=== PATIENT | male | born 1950 | race African-American/Black ===

== ENCOUNTER 2016-06-08 11:53 | Emergency (ER) | payer MEDICARE, MEDICAID ==
[~2016-06-08] VITALS: Ht 200.7 cm; Wt 113.4 kg
[2016-06-08] MEDS ORDERED: Methocarbamol 750mg tab ORAL ONE (12:30)
[2016-06-08] MEDS ORDERED: Ketorolac 30mg Inj IM ONE (12:30)
--- NOTE | 2016-06-08 12:53 | Emergency Room Report ---
History of Present Illness General Chief Complaint: Back Pain-No Injury Source: Patient Present Illness HPI The patient is a 66-year-old with a history of chronic back pain presenting for left lower back pain which began 3 days prior. Pain is described as a 10 out of 10 dull ache and radiates down the back of the leg pain is worse with walking. He denies prior injury to the back. He states he has not taken any medications. He denies any other symptoms such as N, V, F, chills rash, abd pain, dysuria, hematuria, diarrhea Allergies: Coded Allergies: No Known Allergies (Unverified , 06/08/16) Patient History Past Medical History: see triage record Pertinent Family History: none Reviewed Nursing Documentation: PMH: Agreed, PSxH: Agreed Nursing Documentation-PMH Past Medical History: No Stated History Review of Systems All Other Systems: negative except mentioned in HPI Physical Exam Vital Signs Date Time Temp Pulse Resp B/P Pulse Ox O2 Delivery O2 Flow Rate FiO2 06/08/16 12:01 97.9 80 18 112/73 98 Sp02 EP Interpretation: reviewed, normal General Appearance: no apparent distress, alert, GCS 15, non-toxic Head: normocephalic, atraumatic Eyes: bilateral eye PERRL, bilateral eye normal inspection Musculoskeletal: back normal, gait/station normal, normal range of motion, tender - TTP over the L lower paraspinous muscles Neurologic: alert, oriented x3, responsive, motor strength/tone normal, sensory intact, speech normal Psychiatric: judgement/insight normal, memory normal, mood/affect normal, no suicidal/homicidal ideation Skin: normal color, no rash, warm/dry, well hydrated Lymphatic: no adenopathy Medical Decision Making PA Attestation Dr. diehl is my supervising physician. Patient management was discussed with my supervising physician Diagnostic Impression: Primary Impression: Back pain Qualified Codes: M54.5 - Low back pain ER Course The patient is a 66-year-old with a history of chronic back pain presenting for left lower back pain Ddx considered include but not limited to lumbar strain, degenerative disease, chronic pain, narcotic dependency. PE: vitals WNL. NAD Back: No obvious deformity. No midline tenderness. + L lower paraspinal muscle tenderness. Full active range of motion. No CVA tenderness. No lesions , abrasions or ecchymosis seen. Pt is given toradol and robaxin for pain with good relief. The patient states that he has not taken any pain medication, yet [facility] report shows he was prescribed 30 [place] on05/24/2016. Pt was informed of this and is given a prescription for robaxin and motrin. ER precautions given. Last Vital Signs Date Time Temp Pulse Resp B/P Pulse Ox O2 Delivery O2 Flow Rate FiO2 06/08/16 12:01 97.9 80 18 112/73 98 Status: improved Disposition: HOME, SELF-CARE Condition: Improved Scripts Methocarbamol* (ROBAXIN-750*) 750 Mg Tablet 750 MG PO TID, #21 TAB 0 Refills Prov: JIN NOYOLA.Jamel 06/08/16 Ibuprofen* (MOTRIN*) 600 Mg Tablet 600 MG ORAL Q8H Y for For Pain, #30 TAB 0 Refills Prov: JIN NOYOLA.ABambi 06/08/16 Referrals: NON PHYSICIAN (PCP) JIN NOYOLA Jun 08, 2016 12:53
[2016-06-08] MEDS ORDERED: IBUPROFEN600 MG ORAL (12:58)
[2016-06-08] MEDS ORDERED: ROBAXIN-750750 MG PO (12:58)
[2016-06-08 13:04] VITALS: BP 116/71
[2016-06-08 13:05] VITALS: BP 116/71
== END 2016-06-08 13:05 | disposition home or self-care (01) ==
LOC: EMR 12:33
DX: M54.5 Low back pain (principal); G89.29 Other chronic pain
CPT/HCPCS: 96372; 99284; J1885

== ENCOUNTER 2017-12-17 08:37 | Outpatient (CLI) | payer MEDICARE, MEDICAID ==
[~2017-12-17 08:37] MED LIST: IBUPROFEN600 MG ORAL; ROBAXIN-750750 MG PO
--- NOTE | 2017-12-17 15:14 | Diagnostic Imaging Report ---
Indication: Back pain Technique: MRI examination of the lumbar spine was performed in a 1.5 Sade magnet. Sequences obtained include sagittal and axial T1 and T2 fast spin echo, and sagittal STIR. Comparison: none Findings: Bone marrow signal and alignment are normal. The conus medullaris is seen at T12. T12-L1 is unremarkable. L1-2 is unremarkable. L2-3 shows facet hypertrophy. Mild to moderate narrowing of the neural foramen. L3-4 shows mild disc desiccation and narrowing facet arthropathy mild to moderate bilateral foraminal stenosis. L4-5 shows moderate disc disease with narrowing desiccation concentric disc bulge. Superimposed left paracentral disc herniation noted. This may be a protrusion or extrusion and narrows the left lateral recess. Moderate facet arthropathy demonstrated with the moderate stenosis of the neural foramen bilaterally. L5-S1 showing a small posterior central disc protrusion versus extrusion, desiccation and narrowing of intervertebral disc. Facet arthropathy noted. Moderate bilateral foraminal stenosis demonstrated. IMPRESSION: Degenerative disease of the lumbar spine characterized by degenerative disc disease and facet arthropathy at multiple levels. Most notable findings: L4-5 with left lateral recess stenosis due to disc herniation and moderate bilateral neural foraminal stenosis. L5-S1 with posterior central disc protrusion/extrusion. Bilateral moderate foraminal stenosis.
--- NOTE | 2017-12-17 15:21 | Diagnostic Imaging Report ---
Indication: Right knee pain Technique: MRI of the right knee was imaged in a 1.5 Sade magnet. Pulse sequences obtained include coronal T1 fast spin-echo, STIR, sagittal coronal and axial proton fast spin-echo with fat saturation, sagittal proton fast spin-echo. Comparison: None Findings: There is severe degenerative arthritis involving all 3 compartments of the knee especially the medial lateral compartments characterized by grade 4 chondrosis with full-thickness absence of articular cartilage and subchondral edema, prominent hypertrophic marginal osteophytes. There is degeneration of the medial and lateral menisci which are diminished in size, abnormal in contour and morphology heterogeneous the mixed signal throughout the substance of both menisci. There is a small joint effusion. There is a complete tear of the anterior cruciate ligament which is not identified. Posterior cruciate ligament is intact but somewhat redundant as there is an anterior drawer sign. Prominent subchondral cysts also noted. Medial collateral ligament complex is intact. Laterally the iliotibial band is intact. The fibular collateral ligament popliteus tendons are identified. Biceps femoris tendon unremarkable. There is no evidence of an acute fracture or other signs of trauma. IMPRESSION: Severe arthrosis of the knee. Diffuse chronic degeneration and tear of the menisci. Anterior cruciate ligament tear. Small joint effusion.
== END 2017-12-17 10:37 | disposition home or self-care (01) ==
LOC: MRI 08:37
DX: M54.9 Dorsalgia, unspecified (principal); M51.36 Other intervertebral disc degeneration, lumbar region; M51.26 Other intervertebral disc displacement, lumbar region; M48.061 Spinal stenosis, lumbar region without neurogenic claudication; M51.27 Other intervertebral disc displacement, lumbosacral region
CPT/HCPCS: 72148

== ENCOUNTER 2017-12-18 10:16 | Outpatient (CLI) | payer MEDICARE, MEDICAID ==
--- NOTE | 2017-12-18 16:15 | Diagnostic Imaging Report ---
Indication: Chronic left knee pain Technique: Axial, coronal and sagittal proton density fat saturated, and sagittal proton-density, coronal T1, coronal STIR images obtained of the knee Comparison: none Findings: Horizontal band of high signal is seen within the posterior horn of the medial meniscus. This extends into the inferior articular surface. The lateral meniscus is intact. There is grade 3-4 chondrosis and arthrosis of the patellofemoral joint compartment. There is a trace joint effusion. There is mild arthrosis in the medial lateral compartments. The anterior cruciate ligament, posterior cruciate ligament, medial collateral and lateral collateral ligamentous complexes are normal, intact. No bone marrow abnormality. No popliteal cyst demonstrated. 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 Mild medial lateral compartmental arthrosis Trace joint effusion This agrees with the preliminary handwritten interpretation provided by Dr. Leonard
== END 2017-12-18 12:16 | disposition home or self-care (01) ==
LOC: MRI 10:16
DX: M25.562 Pain in left knee (principal); S83.282A Other tear of lateral meniscus, current injury, left knee, initial encounter; X58.XXXA Exposure to other specified factors, initial encounter; M17.12 Unilateral primary osteoarthritis, left knee

== ENCOUNTER 2018-10-06 16:20 | Emergency (ER) | payer MEDICARE, MEDICAID ==
[~2018-10-06] VITALS: Ht 200.7 cm; Wt 135.2 kg
--- NOTE | 2018-10-06 16:40 | NUR ---
ED Nurse Note: pt walked in c/o itching at night time for past two wks, pt reports after he scratches he notices bumps. no sx infection nor open wound at this time. noted small skin bump on left hip area. will cont monitor.
[2018-10-06 17:00] VITALS: BP 148/86
--- NOTE | 2018-10-06 17:20 | Emergency Room Report ---
History of Present Illness General Chief Complaint: Skin Rash/Abscess Source: Patient (Lizet Maddox) Present Illness HPI 68-year-old male with no significant past medical history here complaining of an extremely pruritic rash that started on bilateral lower extremities and upon scratching his lower extremities analysis rating to his upper extremities. Denies pain. Denies fever and chills, pus drainage from the affected site. Denies nausea vomiting, chest pain, shortness of breath, palpitation. Patient reports that the pruritus is worse at night. Denies recent travel or camping. Reports that he normally sleeps on the couch. However the cast is not belong to him. Denies other associated symptoms. (Lizet Maddox) Allergies: Coded Allergies: No Known Allergies (Unverified , 06/08/16) Patient History Past Medical History: see triage record Past Surgical History: unable to obtain Pertinent Family History: none Immunizations: UTD Reviewed Nursing Documentation: PMH: Agreed; PSxH: Agreed (Lizet Maddox) Review of Systems All Other Systems: negative except mentioned in HPI (Lizet Maddox) Physical Exam Vital Signs Date Time Temp Pulse Resp B/P (MAP) Pulse Ox O2 Delivery O2 Flow Rate FiO2 10/06/18 16:29 98.2 80 20 163/74 (103) 95 Room Air Sp02 EP Interpretation: reviewed, normal General Appearance: no apparent distress, alert, GCS 15, non-toxic Head: normocephalic, atraumatic Eyes: bilateral eye normal inspection, bilateral eye PERRL ENT: hearing grossly normal, normal pharynx, no angioedema, normal voice Neck: full range of motion, supple/symm/no masses Respiratory: chest non-tender, lungs clear, normal breath sounds, no wheezing, speaking full sentences Cardiovascular #1: regular rate, rhythm, no edema Gastrointestinal: normal inspection, non tender, soft, no guarding Rectal: deferred Genitourinary: no CVA tenderness Musculoskeletal: back normal, gait/station normal, normal range of motion, non- tender Neurologic: alert, oriented x3, responsive, motor strength/tone normal, sensory intact, speech normal Skin: rash - Macular rash on both lower extremities presenting scabies Lymphatic: no adenopathy (Lizet Maddox) Medical Decision Making PA Attestation All diagnoses and treatment plans were reviewed and discussed with my supervising physician Dr. Teresa (Lizet Maddox) Medicare Attestation The history of Kin Marcano has been reviewed and management options for him have been examined and discussed by Chalo Teresa. I have personally examined and interviewed the patient. (Chalo Teresa MD) Diagnostic Impression: Primary Impression: Scabies ER Course 68-year-old male with no significant past medical history here complaining of an extremely pruritic rash that started on bilateral lower extremities and upon scratching his lower extremities analysis rating to his upper extremities. Denies pain. Denies fever and chills, pus drainage from the affected site. Denies nausea vomiting, chest pain, shortness of breath, palpitation. Patient reports that the pruritus is worse at night. Denies recent travel or camping. Reports that he normally sleeps on the couch. However the cast is not belong to him. Denies other associated symptoms. Ddx considered but are not limited to: Eczema, scabies, lice, Vital signs: are WNL, pt. is afebrile H&PE are most consistent with: Scabies ORDERS: Permethrin, prednisone, , Benadryl ED INTERVENTIONS: None required at this time. DISCHARGE: At this time pt. is stable for d/c to home. Will provide printed patient care instructions, and any necessary prescriptions. Care plan and follow up instructions have been discussed with the patient prior to discharge. Patient to follow-up with her primary care provider if no improvement (Lizet Maddox) Last Vital Signs Date Time Temp Pulse Resp B/P (MAP) Pulse Ox O2 Delivery O2 Flow Rate FiO2 10/06/18 16:29 98.2 80 20 163/74 (103) 95 Room Air (Lizet Maddox) Disposition: HOME, SELF-CARE Condition: Stable Scripts Diphenhydramine HCl (Benadryl) 25 Mg Capsule 25 MG PO TID, #21 CAP Prov: Lizet Maddox 10/06/18 Prednisone* (PREDNISONE*) 20 Mg Tablet 20 MG ORAL BID for 5 Days, #10 TAB 0 Refills Prov: Lizet Maddox 10/06/18 Permethrin* (ELIMITE*) 60 Gm Cream..g. 1 APPLIC TOPIC ONCE, #60 GM 0 Refills Apply cream from head to toe; leave on for 8-14 hours before washing off with water; may reapply in 1 week if live mites appear. Prov: Lizet Maddox 10/06/18 Referrals: NOT CHOSEN IPA/,REFERRING (PCP) Patient Instructions: Scabies, Pediatric Lizet Maddox Oct 06, 2018 17:20 Chalo Teresa MD Oct 06, 2018 22:33
[2018-10-06] MEDS ORDERED: BENADRYL25 M3 PO (17:21)
[2018-10-06] MEDS ORDERED: PERMETHRIN60 GM TOPIC (17:21)
[2018-10-06] MEDS ORDERED: PREDNISONE20 MG ORAL (17:21)
--- NOTE | 2018-10-06 17:27 | NUR ---
ED Nurse Note: pt cleared to be d/c per ERMD, pt discharge instruction w/ prescription, pt education done via discussion and handout, pt advised to follow up with pcp or return to ed if changes in condition, vss, ambulatory w/ steady gait, left w/ all belongings.
[2018-10-06 17:29] VITALS: BP 148/86
== END 2018-10-06 17:29 | disposition home or self-care (01) ==
LOC: EMR 17:07
DX: B86 Scabies (principal)
CPT/HCPCS: 99282

== ENCOUNTER 2018-10-29 12:03 | Emergency (ER) | payer MEDICARE, MEDICAID ==
[~2018-10-29] VITALS: Ht 200.7 cm; Wt 136.1 kg
[~2018-10-29 12:03] MED LIST changes: +BENADRYL25 M3 PO; +PERMETHRIN60 GM TOPIC; +PREDNISONE20 MG ORAL
--- NOTE | 2018-10-29 12:23 | NUR ---
ED Nurse Note: Patient complaining of symptoms of itching states he was treated for scabies and symptoms resolved but symptoms have reappeared. Patient lives at his friends house sleeping on the sofa. Patient states he has been sleeping on the sofa and did treat himself as per insturctions and that he laundered the sheets. Webbing of fingers checked but no marking or rash seen. No tracking munson or bites seen suggesting scabies. Await Dr review.
[2018-10-29 12:33] VITALS: BP 125/77
[2018-10-29 12:34] VITALS: BP 125/77
[2018-10-29] MEDS ORDERED: BENADRYL ALLERG25 M1 PO (12:37)
--- NOTE | 2018-10-29 12:42 | Emergency Room Report ---
History of Present Illness General Chief Complaint: Medication Refill Source: Patient Present Illness HPI Disclaimer: Please note that this report is being documented using [employer] technology. This can lead to erroneous entry secondary to incorrect interpretation by the dictating instrument. HPI: 68-year-old male recently diagnosed with scabies presents for evaluation of pruritus. Patient completed his permethrin treatment and was treated with prednisone and Benadryl. States he got scabies from a couch sleeping at his friend's house which she is still living in. He came in for evaluation as he ran out of his prednisone and Benadryl and has continued itching. He denies any new excoriations. He states he will sometimes notice isolated bites however they seem to disappear within an hour and are usually brought on by him scratching himself. He denies any other symptoms such as purulence, erythema, drainage from any skin sites. Denies any fevers or chills or other symptoms at this time PMH: Denies PSH: Denies Allergies: Denies Social Hx: Denies Allergies: Coded Allergies: No Known Allergies (Unverified , 06/08/16) Nursing Documentation-PMH Past Medical History: No History, Except For Review of Systems All Other Systems: negative except mentioned in HPI Physical Exam Vital Signs Date Time Temp Pulse Resp B/P (MAP) Pulse Ox O2 Delivery O2 Flow Rate FiO2 10/29/18 12:07 98.1 78 18 125/77 (93) 95 Room Air General: Awake and alert, no acute distress HEENT: NC/AT. EOMI. Resp: Normal work of breathing. Skin: Intact. No abrasions, laceration or rash over the exposed skin. No excoriations, no breakdown, no edema or erythema or other findings. MSK: Normal tone and bulk. Moving all extremities. No obvious deformity. Neuro: Awake and alert. Mentating appropriately. Medical Decision Making Diagnostic Impression: Primary Impression: Generalized pruritus ER Course 68-year-old male presents requesting a permethrin prescription for treatment of scabies originally diagnosed several weeks ago. He complains of excessive pruritus but I find no evidence of scabies on the patient, no excoriations, no skin breakdown, no evidence of cellulitis or any other skin disease. We will treat his pruritus with Benadryl but at this time I do not believe he requires any additional medication. He can follow-up with his PMD at his scheduled appointment. We discussed reasons to return to the emergency department. He understands and agrees with this treatment plan. Last Vital Signs Date Time Temp Pulse Resp B/P (MAP) Pulse Ox O2 Delivery O2 Flow Rate FiO2 10/29/18 12:33 98.1 90 16 125/77 95 Room Air Disposition: HOME, SELF-CARE Condition: Stable Scripts Diphenhydramine Hcl (BENADRYL ALLERGY) 25 Mg Tablet 25 MG PO TID for 5 Days, #30 TAB Prov: Chalo Teresa MD 10/29/18 Additional Instructions: He will be prescribed Benadryl for itching. There is no evidence of scabies at this time in utero no longer require medicated cream as you have already completed your treatment course. I encourage you to keep your scheduled appointment with your doctor on Saturday and return to the [facility] department any new or worsening symptoms. Chalo Teresa MD Oct 29, 2018 12:42
== END 2018-10-29 12:50 | disposition home or self-care (01) ==
LOC: EMR 12:30
DX: L29.9 Pruritus, unspecified (principal)
CPT/HCPCS: 99282

== ENCOUNTER 2018-12-22 09:42 | Emergency (ER) | payer MEDICARE, MEDICAID ==
[~2018-12-22] VITALS: Ht 200.7 cm; Wt 137.0 kg
[~2018-12-22 09:42] MED LIST changes: +BENADRYL ALLERG25 M1 PO
[2018-12-22 10:08] VITALS: BP 156/88
--- NOTE | 2018-12-22 10:09 | NUR ---
ED Nurse Note:pt. came with insect bite in scrotal area and tingling sensation in right arm
[2018-12-22] MEDS ORDERED: PERMETHRIN60 GM TOPIC (10:27)
[2018-12-22] MEDS ORDERED: IBUPROFEN600 MG ORAL (10:27)
--- NOTE | 2018-12-22 10:40 | NUR ---
ER DISCHARGE NOTE: Patient is cleared to be discharged per ERMD, pt is aox4, on room air, with stable vital signs. pt was given dc and prescription instructions, pt was able to verbalize understanding, pt is able to ambulate with steady gait. pt took all belongings.
--- NOTE | 2018-12-22 13:01 | Emergency Room Report ---
History of Present Illness General Chief Complaint: Skin Rash/Abscess Source: Patient Present Illness HPI Patient has a history of scabies. He presents emergency department today complaining itching his neck and parts of his arm. He is unsure if he is getting scabies again. He denies any fever nausea vomiting diarrhea chills. Symptoms noted to be mild to moderate. Patient also complains of some tingling sensation in his right hand seem to be worse with movement. Denies any weakness numbness stroke symptoms. No other modifying factors. No other associated signs and symptoms. No other complaints were noted. Allergies: Coded Allergies: No Known Allergies (Unverified , 06/08/16) Patient History Past Medical History: none Past Surgical History: none Pertinent Family History: none Social History: Denies: smoking, alcohol use, drug use Reviewed Nursing Documentation: PMH: Agreed; PSxH: Agreed Review of Systems All Other Systems: negative except mentioned in HPI Physical Exam Vital Signs Date Time Temp Pulse Resp B/P (MAP) Pulse Ox O2 Delivery O2 Flow Rate FiO2 12/22/18 09:51 97.7 76 18 156/88 (110) 97 Room Air Sp02 EP Interpretation: reviewed, normal General Appearance: normal inspection, well appearing, no apparent distress, alert Head: atraumatic Eyes: bilateral eye normal inspection ENT: normal ENT inspection, hearing grossly normal, normal voice Neck: normal inspection, full range of motion, supple, no bony tend Respiratory: normal inspection, lungs clear, normal breath sounds, no respiratory distress, no retraction, no wheezing Cardiovascular #1: regular rate, rhythm, no edema Gastrointestinal: normal inspection, normal bowel sounds, non tender, soft, no guarding, no hernia Genitourinary: no CVA tenderness Musculoskeletal: normal inspection, back normal, normal range of motion Neurologic: normal inspection, alert, responsive, speech normal Psychiatric: normal inspection, judgement/insight normal, mood/affect normal Skin: no rash Medical Decision Making Diagnostic Impression: Primary Impression: Generalized pruritus ER Course Patient presents emergency department today complaining of diffuse rash intermittently with pruritus throughout the body. Differential considerations include scabies, allergic reaction, contact dermatitis just name a few. Patient 's exam is fairly benign. Given patient's history of scabies if it was reasonable to try permethrin cream. We will give patient a prescription for forehead present cream to be tried as needed. Recommend Motrin as needed for the pain in the hand. There is no evidence of CVA no further radiographic studies indicated patient has good range of motion. Patient is advised to follow up with primary doctor in 2-3 days and return the emergency room for any worsening symptoms and as needed. Last Vital Signs Date Time Temp Pulse Resp B/P (MAP) Pulse Ox O2 Delivery O2 Flow Rate FiO2 12/22/18 11:43 97.7 78 18 156/88 97 Room Air Status: improved Disposition: HOME, SELF-CARE Condition: Stable Scripts Ibuprofen* (MOTRIN*) 600 Mg Tablet 600 MG ORAL Q8H PRN for For Pain, #20 TAB 0 Refills Prov: Ji Sanders MD 12/22/18 Permethrin* (ELIMITE*) 60 Gm Cream..g. 1 APPLIC TOPIC ONCE, #60 GM 0 Refills Apply cream from head to toe; leave on for 8-14 hours before washing off with water; may reapply in 1 week if live mites appear. Prov: Ji Sanders MD 12/22/18 Referrals: NOT CHOSEN IPA/,REFERRING (PCP) Patient Instructions: Contact Precautions, [id number] Ji Sanders MD Dec 22, 2018 13:01
== END 2018-12-22 11:00 | disposition home or self-care (01) ==
LOC: EMR 11:00
DX: L29.9 Pruritus, unspecified (principal)
CPT/HCPCS: 99282

== ENCOUNTER 2019-05-03 13:24 | Emergency (ER) | payer MEDICARE, MEDICAID ==
[~2019-05-03] VITALS: Ht 200.7 cm; Wt 140.6 kg
[2019-05-03] MEDS ORDERED: Bacitracin Oint UD TOPIC ONE (14:00)
--- NOTE | 2019-05-03 14:14 | Emergency Room Report ---
History of Present Illness General Chief Complaint: General Complaint Source: Patient Present Illness HPI The patient presents with bilateral lower leg swelling. This been going on for quite a while. He states he was evaluated and had exclusion of clots. He does not recall any blood work that was done. He is never taken a water pill. Recently has been itching and he scratched it. Now there is clear yellow drainage. He denies any fevers or chills. There is no cough or shortness of breath. He denies hemoptysis. There is no calf pain. He was prescribed SANDY stockings. He has been using them occasionally. Patient denies prior cardiac or renal problems. The patient states he recently had a tetanus vaccination. Patient does smoke. No sore throat, chest pain, palpitations, nausea, vomiting, diarrhea, dysuria, abdominal pain, shortness of breath, joint pain, depression, anxiety, visual changes, dizziness, headache. COVID-19 risk:Travel to affect: No Has patient experienced cantu: No Allergies: Coded Allergies: No Known Allergies (Unverified , 06/08/16) Patient History Past Medical History: see triage record Social History: Reports: smoking, alcohol use, drug use - See tox Social History Narrative Having problems with his girlfriend Reviewed Nursing Documentation: PMH: Agreed; PSxH: Agreed Nursing Documentation-PMH Past Medical History: No Stated History Review of Systems All Other Systems: negative except mentioned in HPI Physical Exam Vital Signs Date Time Temp Pulse Resp B/P (MAP) Pulse Ox O2 Delivery O2 Flow Rate FiO2 05/03/19 13:45 97.5 78 18 143/75 (97) 97 Room Air Sp02 EP Interpretation: reviewed, normal General Appearance: well appearing, no apparent distress, GCS 15 Head: normocephalic Eyes: bilateral eye normal inspection, bilateral eye PERRL, bilateral eye EOMI ENT: moist mucus membranes Neck: supple Respiratory: chest non-tender, lungs clear, normal breath sounds Cardiovascular #1: regular rate, rhythm, edema - 2+ pitting with venous disease lower extremities Cardiovascular #2: 2+ radial (R) Gastrointestinal: hernia - Umbilical, overweight Genitourinary: no CVA tenderness Musculoskeletal: back normal, normal range of motion, no calf tenderness, gait/ station normal, other - Bunion deformity bilaterally Neurologic: alert, oriented x3, grossly normal Psychiatric: mood/affect normal Skin: other - Excoriations left lower leg with clear to yellowish serosanguineous fluid Medical Decision Making Diagnostic Impression: Primary Impression: Edema Qualified Codes: R60.9 - Edema, unspecified Additional Impressions: Substance abuse Pyuria ER Course Patient presents with bilateral leg edema and serous drainage from his left leg. Differential includes acute renal failure, venous disease, congestive heart failure, right heart failure, malnutrition amongst others. The legs do not appear cellulitic at this time. He does have evidence of venous disease. Evaluation with EKG, chest x-ray and labs. The patient will be placed on a nurse monitoring. The patient will be given a dose of Lasix. His tetanus is up- to-date and bacitracin will be applied to the lesions on his left leg. Clinically he does not have a DVT at this time. He also states that ultrasound was done fairly recently and was negative. EKG sinus rhythm with incomplete right bundle branch block no injury. Chest x- ray normal. CBC and CMP unremarkable. Troponin negative. Urine tox screen positive for PCP and cocaine. Some pyuria but contaminated specimen. Diuresed well. Improved somewhat Discussed substance abuse. Patient notes out of follow-up to [facility]. Discussed pyuria also. He does not feel he is at risk for sexually transmitted diseases. Will await culture for possible treatment. Patient has appointment with his physician tomorrow. Discussed treatment plan. Patient stable for outpatient observation and treatment. Laboratory Tests Test 05/03/19 14:15 05/03/19 15:15 White Blood Count 6.6 K/UL (4.8-10.8) Red Blood Count 5.19 M/UL (4.70-6.10) Hemoglobin 13.9 G/DL (14.2-18.0) L Hematocrit 43.1 % (42.0-52.0) Mean Corpuscular Volume 83 FL (80-99) Mean Corpuscular Hemoglobin 26.8 PG (27.0-31.0) L Mean Corpuscular Hemoglobin Concent 32.3 G/DL (32.0-36.0) Red Cell Distribution Width 12.9 % (11.6-14.8) Platelet Count 278 K/UL (150-450) Mean Platelet Volume 4.9 FL (6.5-10.1) L Neutrophils (%) (Auto) 53.9 % (45.0-75.0) Lymphocytes (%) (Auto) 33.1 % (20.0-45.0) Monocytes (%) (Auto) 7.6 % (1.0-10.0) Eosinophils (%) (Auto) 3.3 % (0.0-3.0) H Basophils (%) (Auto) 2.1 % (0.0-2.0) H Prothrombin Time 10.0 SEC (9.30-11.50) Prothrombin Time INR 0.9 (0.9-1.1) Activated Partial Thromboplast Time 31 SEC (23-33) Sodium Level 137 MMOL/L (136-145) Potassium Level 4.6 MMOL/L (3.5-5.1) Chloride Level 103 MMOL/L (98-107) Carbon Dioxide Level 26 MMOL/L (21-32) Anion Gap 8 mmol/L (5-15) Blood Urea Nitrogen 12 mg/dL (7-18) Creatinine 1.1 MG/DL (0.55-1.30) Estimate Glomerular Filtration Rate > 60 mL/min (>60) Glucose Level 96 MG/DL (74-106) Calcium Level 9.5 MG/DL (8.5-10.1) Total Bilirubin 0.4 MG/DL (0.2-1.0) Aspartate Amino Transferase (AST) 28 U/L (15-37) Alanine Aminotransferase (ALT) 28 U/L (12-78) Alkaline Phosphatase 84 U/L (46-116) Total Creatine Kinase 335 U/L (26-308) H Troponin I 0.000 ng/mL (0.000-0.056) Pro-B-Type Natriuretic Peptide 18 pg/mL (0-125) Total Protein 7.7 G/DL (6.4-8.2) Albumin 3.6 G/DL (3.4-5.0) Globulin 4.1 g/dL Albumin/Globulin Ratio 0.9 (1.0-2.7) L Urine Color Pale yellow Urine Appearance Clear Urine pH 7 (4.5-8.0) Urine Specific [place] 1.005 (1.005-1.035) Urine Protein Negative (NEGATIVE) Urine Glucose (UA) Negative (NEGATIVE) Urine Ketones Negative (NEGATIVE) Urine Blood Negative (NEGATIVE) Urine Nitrite Negative (NEGATIVE) Urine Bilirubin Negative (NEGATIVE) Urine Urobilinogen Normal MG/DL (0.0-1.0) Urine Leukocyte Esterase 1+ (NEGATIVE) H Urine RBC 0-2 /HPF (0 - 0) H Urine WBC 15-20 /HPF (0 - 0) H Urine Squamous Epithelial Cells Occasional /LPF Urine Bacteria Moderate /HPF (NONE) H Urine Opiates Screen Negative (NEGATIVE) Urine Barbiturates Screen Negative (NEGATIVE) Phencyclidine (PCP) Screen Positive (NEGATIVE) H Urine Amphetamines Screen Negative (NEGATIVE) Urine Benzodiazepines Screen Negative (NEGATIVE) Urine Cocaine Screen Positive (NEGATIVE) H Urine Marijuana (THC) Screen Negative (NEGATIVE) EKG Diagnostic Results Rate: normal Rhythm: NSR ST Segments: no acute changes - Incomplete right bundle branch block Rhythm Strip Diag. Results EP Interpretation: yes Rhythm: NSR, no PVC's, no ectopy Chest X-Ray Diagnostic Results Chest X-Ray Diagnostic Results : Chest X-Ray Ordered: Yes # of Views/Limited/Complete: 1 View Indication: Other EP Interpretation: Yes Interpretation: no consolidation, no effusion, no pneumothorax Impression: No acute disease Electronically Signed by: Electronically signed by Tim Herrera MD Last Vital Signs Date Time Temp Pulse Resp B/P (MAP) Pulse Ox O2 Delivery O2 Flow Rate FiO2 05/03/19 17:17 72 16 123/78 100 Room Air 05/03/19 13:45 97.5 Status: improved Disposition: HOME, SELF-CARE Condition: Improved Scripts Bacitracin (Bacitracin) 28.4 Gm Oint...g. 1 APPLIC TOPIC BID, #20 GM Prov: Tim Herrera MD 05/03/19 Triamterene/Hydrochlorothiazide* (DYAZIDE 37.5-25 MG TAB*) 1 Each Tablet 1 TAB ORAL DAILY, #20 TAB Prov: Tim Herrera MD 05/03/19 Tim Herrera MD May 03, 2019 14:13
--- NOTE | 2019-05-03 14:32 | NUR ---
ED Nurse Note: pt presents with edema to bilateral lower leg edema. pt denies cp/sob. relates legs have been swelling and left leg is noted to have weeping from edema. pt with bacitracin applied to area and covered with sterile DSD. pt on supervisor warping department and urinal given.
[2019-05-03 14:35] LABS: BASOPHILS % (AUTO) 2.1 % (0.0-2.0); EOSINOPHILS % (AUTO) 3.3 % (0.0-3.0); HEMATOCRIT 43.1 % (42.0-52.0); HEMOGLOBIN 13.9 G/DL (14.2-18.0); LYMPHOCYTES % (AUTO) 33.1 % (20.0-45.0); MEAN CORPUSCULAR VOLUME 83 FL (80-99); MONOCYTES % (AUTO) 7.6 % (1.0-10.0); NEUTROPHILS % (AUTO) 53.9 % (45.0-75.0); PLATELET COUNT 278 K/UL (150-450); RED BLOOD COUNT 5.19 M/UL (4.70-6.10); RED CELL DISTRIBUTION WIDTH 12.9 % (11.6-14.8); WHITE BLOOD COUNT 6.6 K/UL (4.8-10.8)
[2019-05-03 14:39] LABS: ANION GAP 8 mmol/L (5-15); BLOOD UREA NITROGEN 12 mg/dL (7-18); CALCIUM 9.5 MG/DL (8.5-10.1); CARBON DIOXIDE 26 MMOL/L (21-32); CHLORIDE 103 MMOL/L (98-107); CREATININE 1.1 MG/DL (0.55-1.30); POTASSIUM 4.6 MMOL/L (3.5-5.1); SODIUM 137 MMOL/L (136-145)
[2019-05-03 14:48] LABS: INR 0.9 (0.9-1.1)
[2019-05-03 14:50] LABS: ALANINE AMINOTRANSFERASE 28 U/L (12-78); ALBUMIN 3.6 G/DL (3.4-5.0); ALBUMIN/GLOBULIN RATIO 0.9 (1.0-2.7); ALKALINE PHOSPHATASE 84 U/L (46-116); ASPARTATE AMINO TRANSFERASE 28 U/L (15-37); BILIRUBIN,TOTAL 0.4 MG/DL (0.2-1.0); CREATINE KINASE 335 U/L (26-308)
[2019-05-03 15:23] LABS: APPEARANCE,URINE CLEAR; BILIRUBIN, URINE NEGATIVE (NEGATIVE); COLOR,URINE PALE YELLOW; GLUCOSE, URINE (UA) NEGATIVE (NEGATIVE); KETONES,URINE NEGATIVE (NEGATIVE); LEUKOCYTE ESTERASE ,URINE 1+ (NEGATIVE); NITRITE,URINE NEGATIVE (NEGATIVE); PH,URINE 7 (4.5-8.0); PROTEIN,URINE NEGATIVE (NEGATIVE); UROBILINOGEN,URINE NORMAL MG/DL (0.0-1.0)
[2019-05-03 15:34] VITALS: BP 123/80
--- NOTE | 2019-05-03 15:41 | NUR ---
ED Nurse Note: pt voiding clear yellow urine, sample sent to lab.
[2019-05-03] MEDS ORDERED: TRIAMTERENE-HC1 EAC5 ORAL (17:08)
[2019-05-03] MEDS ORDERED: BACITRACIN15 GM TOPIC (17:08)
[2019-05-03 17:17] VITALS: BP 123/78
--- NOTE | 2019-05-03 17:19 | NUR ---
ED Nurse Note: Pt cleared by health care Provider for discharge. DC instructions/prescription was given and explained to pt and verbalized understanding of teachings. All medical devices such as ID band and IV site removed. Pt is AAO x4, ambulatory and left with all personal belongings.
--- NOTE | 2019-05-04 09:53 | Diagnostic Imaging Report ---
Indication: Shortness of breath Technique: One view of the chest Comparison: none Findings: There is some atelectasis or scarring at the lung bases. The lungs and pleural spaces are clear. The heart size is normal Impression: No acute process
== END 2019-05-03 17:19 | disposition home or self-care (01) ==
LOC: EMR 14:41
DX: R60.0 Localized edema (principal); F19.10 Other psychoactive substance abuse, uncomplicated; R82.81 Pyuria; E66.3 Overweight; Z68.34 Body mass index [BMI] 34.0-34.9, adult; F17.200 Nicotine dependence, unspecified, uncomplicated; I45.10 Unspecified right bundle-branch block
CPT/HCPCS: 36415; 71045; 80053; 80307; 81003; 82550; 83880; 84484; 85025; 85610; 85730; 87086; 93005; 96374; 99284; J1940